=== PATIENT | female | born 1950 | race Two or more races ===

== ENCOUNTER 2024-06-04 18:00 | Emergency (ER) | payer MEDICAID ==
[~2024-06-04] VITALS: Ht 160 cm; Wt 75.0 kg
[~2024-06-04 18:00] MED LIST: DIVA-93 PO; QUET50TA PO
--- NOTE | 2024-06-04 19:28 | DVH ---
EXAMINATIONS: 3 views of the right wrist CLINICAL HISTORY: right wrist pain/laceration COMPARISON: None Findings and impression: Small avulsion fracture of the distal radial styloid.
[2024-06-04] MEDS ORDERED: CLIN1CAP70 PO (20:57)
[2024-06-04] MEDS ORDERED: ACET500T58 PO (20:57)
--- NOTE | 2024-06-04 20:59 | ED.PDOC ---
HPI Comments 73-year-old female presents to ER with complaints of laceration to right wrist x1 day. 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 prior to arrival to ER s/p glass breaking/making impact with her right wrist while swatting a fly against a glass window with her right hand. She reports 3/10 pain to right wrist without radiation. Denies use of medications for current symptoms and states she is up to date on her tetanus shot. Denies any further symptoms/complaints Chief Complaint: Laceration Time Seen by MD: 18:16 Primary Care Provider: FLEX Reviewed Notes: Nurses Notes, Medications, Allergies Allergies: Coded Allergies: Penicillins (Verified Allergy, Unknown, 11/03/18) Home Meds Active Scripts Clindamycin Hcl (Clindamycin Hcl) 300 Mg Cap, 1 CAP PO TID for 7 Days, #21 CAP 0 Refills Prov:TONY MENDES 06/04/24 Acetaminophen (Acetaminophen) 500 Mg Tab, 500 MG PO Q4HPRN, #30 TAB 0 Refills Prov:TONY MENDES 06/04/24 Reported Medications Divalproex Sodium (Depakote Er) 500 Mg Tab, 1 TAB PO BID, #60 TAB 2 Refills 11/04/18 Quetiapine Fumerate (Seroquel) 50 Mg Tab, 300 MG PO BID for 30 Days, MG 11/04/18 Information Source: Patient Mode of Arrival: Wheelchair Complexity: Intermediate Laceration Length (cm): 3 Past Medical History PAST MEDICAL HISTORY: Schizophrenia Past Medical History (Other): TBI Bipolar Surgical History: Denies all surgeries SAS DEVELOPER History: No Pertinent SAS DEVELOPER History Family History Family History: Unknown Social History Smoker: Non-Smoker Alcohol: Denies ETOH Use Drugs: Denies Drug Use Lives In: Home Constitutional: denies: chills, diaphoresis, fatigue, fever, malaise, sweats, weakness, others EENTM: denies: blurred vision, double vision, ear bleeding, ear discharge, ear drainage, ear pain, ear ringing, eye pain, eye redness, hearing loss, mouth pain, mouth swelling, nasal discharge, nose bleeding, nose congestion, nose pain, photophobia, tearing, throat pain, throat swelling, voice changes, others Respiratory: denies: cough, hemoptysis, orthopnea, SOB at rest, shortness of breath, SOB with excertion, stridor, wheezing, others Cardiovascular: denies: chest pain, dizzy spells, diaphoresis, Dyspnea on exertion, edema, irregular heart beat, left arm pain, lightheadedness, palpit ations, PND, syncope, others Gastrointestinal: denies: abdomen distended, abdominal pain, blood streaked b owels, constipated, diarrhea, dysphagia, difficulty swallowing, hematemesis, melena, nausea, poor appetite, poor fluid intake, rectal bleeding, rectal pain, vomiting, others Genitourinary: denies: abnormal vagina bleeding, burning, dyspareunia, dysuria, flank pain, frequency, hematuria, incontinence, pain, , vagina discharge, urgency, others Neurological: denies: dizziness, fainting, headache, left sided numbness, left sided weakness, numbness, paresthesia, pre-existing deficit, right sided numbness, right sided weakness, seizure, speech problems, tingling, tremors, weakness, others Musculoskeletal: reports: others (As stated in HPI) Integumetry: reports: others (As stated in HPI) Allergic/Immunocompromised: denies: Difficulty Healing, Frequent Infections, Hives, Itching, others Hematologic/Lymphatic: denies: anemia, blood clots, easy bleeding, easy bruising, swollen glands, others Endocrine: denies: excessive hunger, excessive sweating, excessive thirst, excessive urination, flushing, intolerance to cold, intolerance to heat, unexplained weight gain, unexplained weight loss, others Psychiatric: denies: anxiety, bipolar disorder, depression, hopeless, panic disorder, schizophrenia, sleepless, suicidal, others Physical Exam General Appearance: No Apparent Distress HEENT: PERRL/EOMI Neck: Full Range of Motion, Non-Tender, Normal Respiratory: Chest Non-Tender, Lungs Clear, No Accessory Muscle Use, No Respiratory Distress, Normal Breath Sounds Cardiovascular: No Murmur, No Gallop, Regular Rate/Rhythm Breast Exam: Deferred Gastrointestinal: NOT DONE Genitalia: Deferred Pelvic: Deferred Rectal: Deferred Extremities: Normal capillary refill, Normal range of motion Musculoskeletal : Extremity Location: Other (3 cm laceration noted to region of right ulnar styloid. Slight TTP/swelling/erythema localized to wound edges. No foreign body appreciated. Slight TTP/swelling also noted to region of right distal radial styloid. No deformity/further skin changes noted. Patient able to fully move all fingers right hand. Pulses intact) Neurologic: Alert, No Motor Deficits, Normal Affect, Normal Mood, No Sensory Deficits Cerebellar Function: Normal Reflexes: Normal Skin: Dry, Warm Peripheral Pulses: 2+ Radial (R), 2+ Radial (L), 2+ Brachial (R), 2+ Brachial (L) Lymphatic: No Adenopathy Was a procedure done? Was a procedure done?: Yes Sedation Sedation?: No Laceration Repair : Location Right ulnar styloid Length 3 cm Anesthetic: Lidocaine (1%) Laceration Repair Prep: Saline (and peroxide), by Irrigation (heavily irrigated without any signs of foreign body) Laceration Repair: Number of sutures (3 placed without complication), Size (3-0), Nylon, Simple, Non-adherent gauze Informed consent obtained: Yes Risks, benefits, and alternati: Yes Differential diagnosis Generic Laceration: Retained Foriegn Body, Neurovascular Injury, Tendon Injury, Avulsion X-Ray, Labs, Meds, VS Vital Signs Date Time Temp Pulse Resp B/P (MAP) Pulse Ox O2 Delivery O2 Flow Rate FiO2 06/04/24 21:11 96 Room Air* 0 21 06/04/24 21:11 97.7 84 18 111/68 (82) 96 97.7 06/04/24 18:10 97.7 84 18 111/68 (82) 96 97.7 Current Medications Medications (Trade) Dose Ordered Sig/Feli Route Start Time Stop Time Status Last Admin Cefazolin Sodium 50 ml @ 100 mls/hr ONCE ONCE IV 06/04/24 20:15 06/04/24 20:44 DC 06/04/24 21:33 Cefazolin Sodium 50 ml @ 100 mls/hr ONCE ONCE IV 06/04/24 20:15 06/04/24 20:44 DC 06/04/24 21:33 PATIENT: CAYLA DURANDCT: [id number]: [id number] : 1950 LOC: ER ROOM / BED: / AGE / SEX: 73 / F ADM STATUS: REG ER SERVICE [id number] ORDERING PHYSICIAN: TONY MENDES PROCEDURE(s): RWRI - R WRIST 3+ VIEW XRAY REASON: right wrist pain/laceration ORDER NUMBER(s): [id number], ACCESSION NUMBER(s): [id number] EXAMINATIONS: 3 views of the right wrist CLINICAL HISTORY: right wrist pain/laceration COMPARISON: None Findings and impression: Small avulsion fracture of the distal radial styloid. ATED BY: JOSE LUIS CEBALLOS MD DICTATED DATE/TIME: 06/04/241924 SIGNED BY: JOSE LUIS CEBALLOS MD SIGNED DATE/TIME: 06/04/241924 CC: Right wrist x-ray reviewed Patient neurovascularly intact Wound cleaning performed at bedside Hep-Lock IV ordered Ancef 2 mg IV ordered Right short-arm splint applied Wound care/cleaning discussed and advised Advised to follow up in two days for wound check Advised to follow up in 10-14 days for removal of sutures Advised on rest/no strenuous activity and elevation Advised to follow up with PCP and orthopedics in 1-2 days Patients inspector optical instrument verbalized understanding and agreeable with current plan of care Advised to return to ER immediately if symptoms worsen Images Reviewed?: Images reviewed and evaluated by me Time of 1ST Reevaluation: 20:52 Reevaluation 1ST: N/A Time of 2ND Reevaluation: 21:22 Reevaluation 2ND: Improved Patient Education/Counseling: Diagnosis, Treatment, Prognosis, Need For Follow Up Family Education/Counseling: Diagnosis, Treatment, Prognosis, Need For Follow Up Departure 1 Departure Time of Disposition: 21:24 Impression: Primary Impression: Laceration of wrist, right Qualified Codes: S61.511A - Laceration without foreign body of right wrist, initial encounter Additional Impression: Radial styloid fracture Qualified Codes: S52.514B - Nondisplaced fracture of right radial styloid process, initial encounter for open fracture type I or II Disposition: 01 HOME / SELF CARE / HOMELESS Condition: Stable e-Prescriptions Clindamycin Hcl (Clindamycin Hcl) 300 Mg Cap 1 CAP PO TID for 7 Days, #21 CAP 0 Refills Prov: TONY MENDES 06/04/24 Acetaminophen (Acetaminophen) 500 Mg Tab 500 MG PO Q4HPRN, #30 TAB 0 Refills Prov: TONY MENDES 06/04/24 Discharged With: [employer] Blind Mechanic (son) Critical Care Note Critical Care Time?: No Stability Stability form required: No Heart Score Heart Score: Heart Score Response (Comments) Value History N/A 0 EKG N/A 0 Age N/A 0 Risk Factors N/A 0 Troponin N/A 0 Total 0 TONY MENDES Jun 04, 2024 20:59
[2024-06-04 21:11] VITALS: BP 111/68; PULSE 84; RESP 18; TEMP 97.7; O2SAT 96
[2024-06-04] MEDS: ceFAZolin 1GM/50ML 50 ML IV ONE ×2 (21:33)
== END 2024-06-04 22:07 | disposition home or self-care (01) ==
LOC: ER 18:00
DX: S52.511A Displaced fracture of right radial styloid process, initial encounter for closed fracture (principal); S61.511A Laceration without foreign body of right wrist, initial encounter; F20.9 Schizophrenia, unspecified; Z88.0 Allergy status to penicillin; Z79.899 Other long term (current) drug therapy; W25.XXXA Contact with sharp glass, initial encounter; Y93.89 Activity, other specified; Y92.89 Other specified places as the place of occurrence of the external cause; Y99.8 Other external cause status
CPT/HCPCS: 12002; 29125; 73110; 96365; 99284; J0690

== ENCOUNTER 2024-06-16 08:55 | Emergency (ER) | payer MEDICAID ==
[~2024-06-16] VITALS: Ht 152.4 cm; Wt 64.0 kg
[~2024-06-16 08:55] MED LIST changes: +ACET500T58 PO; +CLIN1CAP70 PO
[2024-06-16 09:50] VITALS: BP 142/70; PULSE 77; RESP 16; TEMP 98.2; O2SAT 94
--- NOTE | 2024-06-16 10:21 | ED.PDOC ---
History of Present Illness(SKN HPI Comments 73 year old BIB son for wound check. No other complaint. Chief Complaint: Suture Removal Time Seen by MD: 09:26 Primary Care Provider: FLEX History of Present Illness: Nurses Notes, Medications, Allergies Allergies: Coded Allergies: Penicillins (Verified Allergy, Unknown, 11/03/18) Home Meds Active Scripts Clindamycin Hcl (Clindamycin Hcl) 300 Mg Cap, 1 CAP PO TID for 7 Days, #21 CAP 0 Refills Prov:TONY MENDES 06/04/24 Acetaminophen (Acetaminophen) 500 Mg Tab, 500 MG PO Q4HPRN, #30 TAB 0 Refills Prov:TONY MENDES 06/04/24 Reported Medications Divalproex Sodium (Depakote Er) 500 Mg Tab, 1 TAB PO BID, #60 TAB 2 Refills 11/04/18 Quetiapine Fumerate (Seroquel) 50 Mg Tab, 300 MG PO BID for 30 Days, MG 11/04/18 Information Source: Patient Mode of Arrival: Wheelchair Past Medical History PAST MEDICAL HISTORY: Schizophrenia Surgical History: Denies all surgeries BREAD BAKER History: No Pertinent BREAD BAKER History Family History Family History: Unknown Social History Smoker: Non-Smoker Alcohol: Denies ETOH Use Drugs: Denies Drug Use Lives In: Home All Other Systems: Reviewed and Negative (Per HPI) Physical Exam General Appearance: No Apparent Distress, Normal HEENT: Normal ENT Inspection, Pharynx Normal, TMs Normal Neck: Full Range of Motion, Non-Tender, Normal, Normal Inspection Respiratory: Chest Non-Tender, Lungs Clear, No Accessory Muscle Use, No Respiratory Distress, Normal Breath Sounds Cardiovascular: No Edema, No JVD, No Murmur, No Gallop, Normal Peripheral Pulses, Regular Rate/Rhythm Breast Exam: Deferred Gastrointestinal: No Organomegaly, Non Tender, No Pulsatile Mass, Normal Bowel Sounds, Soft Genitalia: Deferred Pelvic: Deferred Rectal: Deferred Extremities: No calf tenderness, Normal capillary refill, Normal inspection, Normal range of motion, Non-tender, No pedal edema Musculoskeletal : Apperance: Normal Neurologic: Alert, assembler 1st shift II-XII nml as Tested, No Motor Deficits, Normal Affect, Normal Mood, No Sensory Deficits Cerebellar Function: Normal Reflexes: Normal Skin: Dry, Normal Color, Warm Lymphatic: No Adenopathy Was a procedure done? Was a procedure done?: No Differential Diagnosis (INTG) Differential Diagnosis: Other X-Ray, Labs, Meds, VS Vital Signs Date Time Temp Pulse Resp B/P (MAP) Pulse Ox O2 Delivery O2 Flow Rate FiO2 06/16/24 09:50 16 94 Room Air* 0 21 06/16/24 09:50 98.2 77 16 142/70 (94) 94 98.2 06/16/24 09:10 98.2 78 16 142/70 (94) 94 98.2 X-Ray, Labs, Meds, VS Comment 73-year-old brought in by son for wound check. No other complaint. Patient is stable for discharge at this time. External notes reviewed. Test results and diagnostic imaging interpreted. All diagnostic findings, discharge care, education and instructions provided Follow-up with PCP in 2 to 3 days Patient verbalized understanding and agreed to treatment plan Vital signs stable, afebrile, no acute distress noted Patient ambulatory with strong steady gait Advised to return precautions for any new or worsening symptoms, return to ER immediately for re-evaluation Patient is aware that the purpose of this visit was for an acute medical emergency requiring emergent stabilization. Chronic conditions, including malignancies have not been ruled out. Patient is instructed to follow up with PCP as directed and discharge instructions for continued care and workup. If unable to arrange follow-up, patient is to return to the emergency department for reassessment. Patient (parent or legal guardian if applicable) was given verbal and written discharge instructions and acknowledges understanding. Time of 1ST Reevaluation: 10:20 Reevaluation 1ST: Improved Patient Education/Counseling: Diagnosis, Treatment Family Education/Counseling: Diagnosis, Treatment Departure 1 Departure Time of Disposition: 10:20 Impression: Primary Impression: Visit for wound check Disposition: 01 HOME / SELF CARE / HOMELESS Condition: Fair Critical Care Note Critical Care Time?: No Stability Stability form required: No Heart Score Heart Score: Heart Score Response (Comments) Value History N/A 0 EKG N/A 0 Age N/A 0 Risk Factors N/A 0 Troponin N/A 0 Total 0 MELONY BARNEY NP June 16, 2024 10:21
== END 2024-06-16 10:24 | disposition home or self-care (01) ==
LOC: ER 08:55
DX: S61.511D Laceration without foreign body of right wrist, subsequent encounter (principal); F20.9 Schizophrenia, unspecified; Z79.899 Other long term (current) drug therapy; Z88.0 Allergy status to penicillin; X58.XXXD Exposure to other specified factors, subsequent encounter